=== PATIENT | male | born 1960 | race Caucasian/White ===

== ENCOUNTER 2019-02-12 15:45 | Observation (INO) ==
[2019-02-12 16:51] LABS: Basophils # 0.1 10*3/uL (0.0-0.2); Basophils % 0.7 % (0.0-0.8); Eosinophils # 0.2 10*3/uL (0.0-0.87); Eosinophils % 2.2 % (0.00-10.9); Hematocrit 41.6 VOL% (42.0-52.0); Immature Granulocytes % 0.6 %; Immature Granulocytes Absolute 0.05 #; Lymphocytes # 2.8 10*3/uL (1.4-4.0); Lymphocytes % 35.3 % (21.2-54.2); Mean Corpuscular HGB Conc 33.7 GM/DL (32-36); Mean Corpuscular Volume 98.3 FL (87-102); Mean Platelet Volume 8.8 FL (9.6-12.0); Monocytes % 10.3 % (1.7-12.7); Neutrophils % 50.9 % (38.7-73.9); Platelet Count 333 T/CUMM (130-400); Red Blood Count 4.23 MC/CUMM (3.8-5.5); Red Cell Distribution Width 13.5 % (9.3-17.3)
[2019-02-12 17:17] LABS: Alanine Aminotransferase 24 U/L (16-61); Albumin 3.4 G/DL (3.4-5.0); Alkaline Phosphatase 75 U/L (45-117); Aspartate Amino Transferase 19 U/L (0-37); Bilirubin,Total < 0.39 MG/DL (0.2-1.0); Blood Urea Nitrogen 14 MG/DL (7-18); Calcium 8.9 MG/DL (8.5-10.1); Glucose 75 MG/DL (74-106); Osmolality,Calculated 282.1 MOS/KG (273-304); Total Protein 7.4 G/DL (6.4-8.3)
[2019-02-12 17:30] LABS: INR 0.9
[2019-02-12] MEDS ORDERED: METOPROLOL TARTRATE 25 MG TABLET PO STA (17:34)
[2019-02-12 17:40] LABS: Apearance,Urine CLEAR (Clear); Bilirubin,Urine Negative (Negative); Blood, Urine Negative (Negative); Glucose,Urine (UA) Negative (Negative); Ketones,Urine Negative (Negative); Mucus,Urine Occasional /LPF (Occasional); Nitrite,Urine Negative (Negative); Protein,Urine Negative; RBC,Urine 1 /HPF (0-4); Squamous Epithelial Cell,Urine Occasional /HPF (0-10); Urine Color Straw (Yellow); Urine Specific Gravity 1.009 (1.001-1.035); Urine Urobilinogen < 2.0 EU/DL (0.2-1.0); WBC,Urine <1 /HPF (0-6)
[2019-02-12] MEDS ORDERED: guaiFENesin/DM ER 600-30 MG TABLET PO PRN (19:12)
[2019-02-12] MEDS ORDERED: ONDANSETRON 4 MG/2 ML VIAL IV PRN (19:12)
[2019-02-12] MEDS ORDERED: ACETAMINOPHEN 325 MG TABLET PO PRN (19:12)
[2019-02-12] MEDS ORDERED: MORPHINE 4 MG/1 ML VIAL IV PRN (19:12)
[2019-02-12] MEDS ORDERED: LABETALOL 20 MG/4 ML SYRINGE IV PRN (19:17)
[2019-02-12] MEDS ORDERED: ALUM/MAG/SIMETH/LIDO VISC 1:1 30 ML BOTTLE PO ONE (19:19)
[2019-02-12] MEDS ORDERED: NITROGLYCERIN 2% OINT 1 INCH/GM PACK TOP STA (19:20)
[2019-02-12 20:39] LABS: Barbiturates Screen,Urine Negative (Negative); Benzodiazepines Screen,Urine Negative (Negative); Cannabinoid Screen,Urine Negative (Negative); Opiate Screen,Urine Negative (Negative); Phencyclidine Screen,Urine Negative (Negative)
[2019-02-12 21:08] LABS: Troponin I < 0.015 NG/ML (0.00-0.045)
[2019-02-12] MEDS: ENOXAPARIN 40 MG/0.4 ML SYRINGE SUBCUT SCH (22:06)
[2019-02-12] MEDS: ATORVASTATIN 40 MG TABLET PO SCH (22:06)
[2019-02-12] MEDS: METOPROLOL TARTRATE 25 MG TABLET PO SCH (22:07)
[2019-02-13 06:48] LABS: Basophils # 0.1 10*3/uL (0.0-0.2); Basophils % 0.7 % (0.0-0.8); Eosinophils # 0.2 10*3/uL (0.0-0.87); Eosinophils % 1.7 % (0.00-10.9); Hematocrit 40.2 VOL% (42.0-52.0); Hemoglobin 13.5 GM/DL (14.0-18.0); Immature Granulocytes % 0.6 %; Immature Granulocytes Absolute 0.05 #; Lymphocytes # 2.2 10*3/uL (1.4-4.0); Mean Corpuscular HGB Conc 33.6 GM/DL (32-36); Mean Corpuscular Volume 98.5 FL (87-102); Mean Platelet Volume 9.1 FL (9.6-12.0); Platelet Count 311 T/CUMM (130-400); Red Blood Count 4.08 MC/CUMM (3.8-5.5); Red Cell Distribution Width 13.6 % (9.3-17.3); White Blood Count 9.1 T/CUMM (4-12)
[2019-02-13 07:24] LABS: Troponin I < 0.015 NG/ML (0.00-0.045)
[2019-02-13 07:28] LABS: Albumin 3.1 G/DL (3.4-5.0); Bilirubin,Total 0.5 MG/DL (0.2-1.0); Calcium 8.7 MG/DL (8.5-10.1); Osmolality,Calculated 278.3 MOS/KG (273-304); Risk Ratio 3.53; Total Protein 6.7 G/DL (6.4-8.3); VLDL CHOLESTEROL 37.2 MG/DL
[2019-02-13] MEDS: METOPROLOL TARTRATE 25 MG TABLET PO SCH ×3 (10:29→21:18)
[2019-02-13] MEDS: LISINOPRIL 5 MG TABLET PO SCH (10:41)
[2019-02-13] MEDS: ASPIRIN EC 325 MG TABLET PO SCH (10:41)
[2019-02-13] MEDS: NICOTINE 21 MG/24 HR PATCH TRANSDERM SCH (10:42)
[2019-02-13] MEDS: PANTOPRAZOLE 40 MG TABLET PO SCH (10:42)
[2019-02-13] MEDS ORDERED: ACETAMINOPHEN 325 MG TABLET PO ONE (15:24)
[2019-02-13] MEDS: GABAPENTIN 100 MG CAPSULE PO SCH ×2 (17:40→21:15)
[2019-02-13] MEDS: ATORVASTATIN 40 MG TABLET PO SCH (21:15)
[2019-02-13] MEDS: ENOXAPARIN 40 MG/0.4 ML SYRINGE SUBCUT SCH (21:15)
[2019-02-13] MEDS: ACETAMINOPHEN 325 MG TABLET PO SCH (21:15)
[2019-02-14 05:59] LABS: Basophils # 0.1 10*3/uL (0.0-0.2); Eosinophils # 0.2 10*3/uL (0.0-0.87); Eosinophils % 2.2 % (0.00-10.9); Hematocrit 41.6 VOL% (42.0-52.0); Hemoglobin 13.8 GM/DL (14.0-18.0); Immature Granulocytes % 0.7 %; Immature Granulocytes Absolute 0.05 #; Lymphocytes # 2.1 10*3/uL (1.4-4.0); Lymphocytes % 30.6 % (21.2-54.2); Mean Corpuscular HGB Conc 33.2 GM/DL (32-36); Mean Corpuscular Volume 99.5 FL (87-102); Monocytes % 9.6 % (1.7-12.7); Neutrophils % 55.9 % (38.7-73.9); Platelet Count 310 T/CUMM (130-400); Red Blood Count 4.18 MC/CUMM (3.8-5.5); Red Cell Distribution Width 13.5 % (9.3-17.3); White Blood Count 6.8 T/CUMM (4-12)
[2019-02-14 06:31] LABS: Calcium 8.6 MG/DL (8.5-10.1); Osmolality,Calculated 279.3 MOS/KG (273-304)
[2019-02-14] MEDS: NICOTINE 21 MG/24 HR PATCH TRANSDERM SCH (09:21)
[2019-02-14] MEDS: METOPROLOL TARTRATE 25 MG TABLET PO SCH (09:35)
[2019-02-14] MEDS: PANTOPRAZOLE 40 MG TABLET PO SCH (09:38)
[2019-02-14] MEDS: ACETAMINOPHEN 325 MG TABLET PO SCH (09:38)
[2019-02-14] MEDS: GABAPENTIN 100 MG CAPSULE PO SCH (09:38)
[2019-02-14] MEDS: LISINOPRIL 5 MG TABLET PO SCH (09:38)
[2019-02-14] MEDS: ASPIRIN EC 325 MG TABLET PO SCH (09:38)
[2019-02-14] MEDS ORDERED: MONTELUKAST 10 MG TABLET PO SCH (10:00)
[2019-02-14] MEDS ORDERED: LISINOPRIL 20 MG TABLET PO SCH (10:00)
[2019-02-14] MEDS ORDERED: hydroCHLOROthiazide 25 MG TABLET PO SCH (10:00)
[2019-02-14] MEDS ORDERED: LISINOPRIL 5 MG TABLET PO ONE (10:30)
[2019-02-14 12:09] VITALS: BP 128/77
== END 2019-02-14 15:30 | disposition home or self-care (01) ==
LOC: N.ED 15:45 → N.EDINP 19:11 → INTOOBSV 19:11 → N.4E 21:29
PROVIDERS: ADMIT Internal Medicine; ATTEND Internal Medicine